=== PATIENT | female | born 1950 | race Caucasian/White ===

== ENCOUNTER 2021-02-13 20:41 | Emergency (ER) | payer MEDICARE, MEDICAID ==
[~2021-02-13] VITALS: Ht 165.1 cm; Wt 92.1 kg
[2021-02-13 21:05] VITALS: BP 155/102
--- NOTE | 2021-02-13 21:05 | NUR ---
PT TAKEN TO BED 7
--- NOTE | 2021-02-13 22:10 | NUR ---
Dr. Horvath examining patient.
[2021-02-13] MEDS ORDERED: MECLIZINE 25 MG TAB PO ONE (22:15)
--- NOTE | 2021-02-13 22:39 | NUR ---
PT REPORTS IMPROVED EAR PAIN AND DIZZINESS SENSATION.
[2021-02-13] MEDS ORDERED: COROTSOL LEFT EAR (22:46)
[2021-02-13] MEDS ORDERED: MECL-303 PO (22:46)
[2021-02-13] MEDS ORDERED: IBUP-2213 PO (22:46)
--- NOTE | 2021-02-13 22:46 | NUR ---
PT DENIES ANY ONGOING DIZZINESS.
[2021-02-13 22:52] VITALS: BP 155/102
--- NOTE | 2021-02-13 22:52 | NUR ---
Patient discharged with v/s stable. Written and verbal after care instructions given and explained. Patient alert, oriented and verbalized understanding of instructions. Ambulatory with steady gait. All questions addressed prior to discharge. ID band removed. Patient advised to follow up with PMD. Rx of NEOMYCIN, ANTIVERT, IBUPROFEN given. Patient educated on indication of medication including possible reaction and side effects. Opportunity to ask questions provided and answered.
== END 2021-02-13 22:52 | disposition home or self-care (01) ==
LOC: MED 20:41
DX: R42 Dizziness and giddiness (principal); H60.92 Unspecified otitis externa, left ear; I10 Essential (primary) hypertension; Z90.49 Acquired absence of other specified parts of digestive tract; Z90.710 Acquired absence of both cervix and uterus; Z98.890 Other specified postprocedural states
CPT/HCPCS: 99283; J8597

== ENCOUNTER 2021-05-09 12:19 | Emergency (ER) | payer MEDICARE, MEDICAID ==
[~2021-05-09] VITALS: Ht 165.1 cm; Wt 90.7 kg
[~2021-05-09 12:19] MED LIST: COROTSOL LEFT EAR; IBUP-2213 PO; MECL-303 PO
[2021-05-09 12:54] VITALS: BP 118/52
[2021-05-09] MEDS ORDERED: PRED20TA5 PO (14:28)
[2021-05-09] MEDS ORDERED: IBUP-2213 PO (14:28)
[2021-05-09] MEDS ORDERED: COROTSOL LEFT EAR (14:28)
--- NOTE | 2021-05-09 16:00 | NUR ---
Patient discharged with v/s stable. Written and verbal after care instructions ABOUT OTITIS EXTERNA AND COUGH given and explained. Patient alert, oriented and verbalized understanding of instructions. Ambulatory with steady gait. All questions addressed prior to discharge. ID band removed. Patient advised to follow up with PMD. Rx of CORTISPORIN OTIC SOLUTION, IBUPROFEN AND DELTASONE given. Patient educated on indication of medication including possible reaction and side effects. Opportunity to ask questions provided and answered.
== END 2021-05-09 15:59 | disposition home or self-care (01) ==
LOC: MED 12:19
DX: H60.92 Unspecified otitis externa, left ear (principal); R05.9 Cough, unspecified; I10 Essential (primary) hypertension; Z90.49 Acquired absence of other specified parts of digestive tract; Z90.710 Acquired absence of both cervix and uterus; Z98.890 Other specified postprocedural states; Z79.899 Other long term (current) drug therapy
CPT/HCPCS: 99283

== ENCOUNTER 2021-07-23 19:01 | Emergency (ER) | payer MEDICARE, MEDICAID ==
[~2021-07-23] VITALS: Ht 165.1 cm; Wt 93.9 kg
[~2021-07-23 19:01] MED LIST changes: +PRED20TA5 PO
[2021-07-23 19:12] VITALS: BP 159/87
--- NOTE | 2021-07-23 21:21 | NUR ---
Dr. Whittington at triage room to exam patient.
--- NOTE | 2021-07-23 21:27 | NUR ---
US left knee by Dr. Whittington.
[2021-07-23] MEDS ORDERED: NAPR-54 PO (21:35)
[2021-07-23] MEDS ORDERED: ACET-10509 PO (21:35)
[2021-07-23 21:42] VITALS: BP 138/68
--- NOTE | 2021-07-23 21:42 | NUR ---
Patient discharged with v/s stable. Written and verbal after care instructions given and explained. Patient alert, oriented and verbalized understanding of instructions. Wheel Chair Assisted with to car. All questions addressed prior to discharge. ID band removed. Patient advised to follow up with PMD. Rx of Tylenol and Naproxen given. Patient educated on indication of medication including possible reaction and side effects. Opportunity to ask questions provided and answered.
[2021-08-19] MEDS ORDERED: TRAM50TA3 PO (16:59)
== END 2021-07-23 21:42 | disposition home or self-care (01) ==
LOC: MED 19:01
DX: M25.462 Effusion, left knee (principal); X58.XXXA Exposure to other specified factors, initial encounter; Y93.89 Activity, other specified; Y92.89 Other specified places as the place of occurrence of the external cause; Y99.8 Other external cause status
CPT/HCPCS: 99284

== ENCOUNTER 2021-08-18 11:32 | Emergency (ER) | payer MEDICARE, MEDICAID ==
[~2021-08-18] VITALS: Ht 165.1 cm; Wt 92.6 kg
[~2021-08-18 11:32] MED LIST changes: +ACET-10509 PO; +NAPR-54 PO
[2021-08-18 11:43] VITALS: BP 156/98
--- NOTE | 2021-08-18 12:00 | NUR ---
XRAY AT BEDSIDE
--- NOTE | 2021-08-18 12:11 | NUR ---
71 y/o female, c/o left knee pain for 1 month, pain worsened 3 days ago. pt was previously seen for same s/s, was seen 4 times prior in ER, has not been able to see specialist. denies nausea, vomiting, diarrhea. skin is pink/warm/dry. a&o x4 states she is unable to ambulate. lungs clear bl, heart rate even and regular. pt denies any fever, cp, sob, or cough at this time. pt states pain is 10/10 at this time. vss. patient positioned for comfort. hob elevated. bed down. ermd made aware of pt. pmh: htn nka
[2021-08-18] MEDS ORDERED: KETOROLAC 30 MG/ML VIAL IM ONE (12:15)
[2021-08-18] MEDS ORDERED: ACET-8386 PO (12:41)
--- NOTE | 2021-08-18 13:23 | NUR ---
Patient discharged with v/s stable. Written and verbal after care instructions ABOUT ARTHRITIS given and explained. Patient alert, oriented and verbalized understanding of instructions. Wheel Chair Assisted with to car. All questions addressed prior to discharge. ID band removed. Patient advised to follow up with PMD. Rx of HYDROCODONE given.Opportunity to ask questions provided and answered.
[2021-08-18 13:25] VITALS: BP 156/98
--- NOTE | 2021-08-18 13:35 | NUR ---
The patient's care was reviewed and supervised by Teresa Seth, RN, RN.
[2021-08-19] MEDS ORDERED: TRAM50TA3 PO (16:59)
== END 2021-08-18 13:25 | disposition home or self-care (01) ==
LOC: MED 11:32
DX: M17.12 Unilateral primary osteoarthritis, left knee (principal); I10 Essential (primary) hypertension; Z79.899 Other long term (current) drug therapy; Z79.1 Long term (current) use of non-steroidal anti-inflammatories (NSAID)
CPT/HCPCS: 73562; 96372; 99283; J1885